=== PATIENT | female | born 1945 | race Caucasian/White ===

== ENCOUNTER 2024-01-12 16:23 | Emergency (ER) | payer BC, MEDICARE ==
[~2024-01-12] VITALS: Ht 149.9 cm; Wt 60.3 kg
[~2024-01-12 16:23] MED LIST: ATENOLOL50 MG PO; CYMBALTA20 MG PO; FERROUS SULFAT325 MG PO; FOLIC ACID0.4 MG PO; GABAPENTIN300 MG PO; HYOSCYAMINE0.375 MG PO; IRBESARTAN150 MG PO; LEVETIRACETAM500 MG PO; LEVOTHYROXINE112 MCG PO; METFORMIN HCL500 MG PO; MONTELUKAST SOD10 MG PO; MUCINEX DM ER1 EACH PO; OMEPRAZOLE40 MG PO; PEPCID AC10 MG PO; TRESIBA100 UNIT/1 SC; VIT B12 PO
[2024-01-12 16:33] VITALS: TEMP 98.3
[2024-01-12 17:15] LABS: BASOPHILS % 0.3 % (0.0-1.0); EOSINOPHILS # (AUTO) 0.1 (0.0-0.4); EOSINOPHILS % 0.8 % (0.0-6.0); HEMATOCRIT 33.7 % (34.2-44.1); HEMOGLOBIN 10.7 g/dL (12.0-16.0); LYMPHOCYTES # (AUTO) 0.6 (1.0-3.2); LYMPHOCYTES % 9.2 % (18.0-39.1); MEAN CORPUSCULAR HEMOGLOBIN 32.7 pg (28-32); MEAN CORPUSCULAR HGB CONC 31.8 g/dL (31-35); MEAN CORPUSCULAR VOLUME 103.1 fL (81-99); MONOCYTES # (AUTO) 0.4 (0.2-0.8); MONOCYTES % 5.4 % (4.4-11.3); NEUTROPHILS # (AUTO) 5.6 (2.1-6.9); NEUTROPHILS % 84.1 % (38.7-80.0); PLATELET COUNT 77 x10e3/uL (140-360); RED BLOOD COUNT 3.27 x10e6/uL (3.6-5.1); RED CELL DISTRIBUTION WIDTH 16.2 % (11.7-14.4); WHITE BLOOD COUNT 6.66 x10e3/uL (4.8-10.8)
[2024-01-12 17:26] LABS: ALBUMIN 2.9 g/dL (3.5-5.0); ALBUMIN/GLOBULIN RATIO 0.6 (0.8-2.0); ANION GAP 11.4 mmol/L (8-16); BILIRUBIN,TOTAL 1.1 mg/dL (0.2-1.2); CALCIUM 8.1 mg/dL (8.4-10.2); CREATININE, SERUM 0.84 mg/dL (0.57-1.11); TOTAL PROTEIN 7.8 g/dL (6.5-8.1)
[2024-01-12 17:27] LABS: POTASSIUM 3.4 mmol/L (3.5-5.1)
[2024-01-12 17:32] LABS: TROPONIN I 0.003 ng/mL (0-0.300)
[2024-01-12 19:52] LABS: INR 1.16; PROTHROMBIN TIME 15.5 seconds (11.9-14.5)
[2024-01-12 19:53] LABS: PARTIAL THROMBOPLASTIN TIME 33.9 seconds (23.8-35.5)
[2024-01-12] MEDS ORDERED: DEXTROSE 50% SYRINGE 50 ML IV ONE (21:05)
[2024-01-12] MEDS: DEXTROSE 50% SYRINGE 50 ML IV ONE (21:06)
[2024-01-12] MEDS ORDERED: DEXTROSE 50% SYRINGE 50 ML IV PRN (21:15)
[2024-01-12 22:00] VITALS: PULSE 81; RESP 24
[2024-01-12 22:35] VITALS: BP 166/99; O2SAT 97
== END 2024-01-12 22:30 | disposition other institution (70) ==
LOC: ER 16:34
DX: R06.00 Dyspnea, unspecified (principal); R18.8 Other ascites; K74.60 Unspecified cirrhosis of liver; K57.30 Diverticulosis of large intestine without perforation or abscess without bleeding; E11.65 Type 2 diabetes mellitus with hyperglycemia; R16.1 Splenomegaly, not elsewhere classified; I10 Essential (primary) hypertension
CPT/HCPCS: 36415; 71045; 74176; 80053; 82140; 82948; 83880; 84484; 85025; 85610; 85730; 93005; 99284; J7799

== ENCOUNTER 2024-03-25 11:14 | Emergency (ER) | payer BC, MEDICARE ==
[~2024-03-25] VITALS: Ht 149.9 cm; Wt 60.3 kg
[2024-03-25 12:53] LABS: BASOPHILS % 0.3 % (0.0-1.0); EOSINOPHILS # (AUTO) 0.1 (0.0-0.4); EOSINOPHILS % 1.2 % (0.0-6.0); HEMATOCRIT 44.6 % (34.2-44.1); HEMOGLOBIN 13.9 g/dL (12.0-16.0); LYMPHOCYTES # (AUTO) 0.8 (1.0-3.2); LYMPHOCYTES % 14.5 % (18.0-39.1); MEAN CORPUSCULAR HGB CONC 31.2 g/dL (31-35); MEAN CORPUSCULAR VOLUME 102.8 fL (81-99); MONOCYTES # (AUTO) 0.1 (0.2-0.8); MONOCYTES % 2.1 % (4.4-11.3); NEUTROPHILS # (AUTO) 4.7 (2.1-6.9); NEUTROPHILS % 81.6 % (38.7-80.0); PLATELET COUNT 78 x10e3/uL (140-360); RED BLOOD COUNT 4.34 x10e6/uL (3.6-5.1); RED CELL DISTRIBUTION WIDTH 16.4 % (11.7-14.4); WHITE BLOOD COUNT 5.74 x10e3/uL (4.8-10.8)
[2024-03-25 13:15] LABS: INR 1.02
[2024-03-25 13:16] LABS: PARTIAL THROMBOPLASTIN TIME 35.2 seconds (23.8-35.5)
[2024-03-25 13:28] LABS: ALANINE AMINOTRANSFERASE 37 IU/L (0-55); ALBUMIN 3.8 g/dL (3.5-5.0); ALBUMIN/GLOBULIN RATIO 0.6 (0.8-2.0); ALKALINE PHOSPHATASE 196 IU/L (40-150); ANION GAP 16.9 mmol/L (8-16); BILIRUBIN,TOTAL 1.8 mg/dL (0.2-1.2); BLOOD UREA NITROGEN 26 mg/dL (7-26); BUN/CREATININE RATIO 28 (6-25); CALCIUM 9.3 mg/dL (8.4-10.2); CARBON DIOXIDE 26 mmol/L (22-29); CHLORIDE 106 mmol/L (98-107); CREATINE KINASE 112 IU/L (29-168); CREATININE, SERUM 0.93 mg/dL (0.57-1.11); EST GLOMERULAR FILTRATION RATE 63 ML/MIN (>=60); SODIUM 146 mmol/L (136-145); TOTAL PROTEIN 10.1 g/dL (6.5-8.1)
[2024-03-25 13:30] LABS: POTASSIUM 2.9 mmol/L (3.5-5.1)
[2024-03-25 13:31] LABS: GLUCOSE 46 mg/dL (74-118)
[2024-03-25] MEDS ORDERED: DEXTROSE 50% SYRINGE 50 ML IV ONE (13:35)
[2024-03-25] MEDS: DEXTROSE 50% SYRINGE 50 ML IV STA (13:43)
[2024-03-25] MEDS ORDERED: ALBUMIN 25% 12.5GM 50ML 100 ML IV ONE (15:32)
[2024-03-25] MEDS ORDERED: ALBUMIN 25% 12.5GM 50ML 50 ML IV ONE (15:41)
[2024-03-25] MEDS: POTASSIUM CHLORIDE 20 MEQ TAB CR PO STA (16:24)
[2024-03-25 17:40] VITALS: PULSE 60; RESP 18; TEMP 98; O2SAT 99
[2024-03-25 17:46] LABS: TROPONIN I < 0.05 ng/mL (0.0-0.40)
== END 2024-03-25 18:15 | disposition home or self-care (01) ==
LOC: ER 11:29
DX: R18.8 Other ascites (principal); K74.60 Unspecified cirrhosis of liver; E11.649 Type 2 diabetes mellitus with hypoglycemia without coma; I10 Essential (primary) hypertension; E03.9 Hypothyroidism, unspecified; K76.9 Liver disease, unspecified; D64.9 Anemia, unspecified; E78.5 Hyperlipidemia, unspecified; K21.9 Gastro-esophageal reflux disease without esophagitis; F32.A Depression, unspecified
CPT/HCPCS: 36415; 49083; 71045; 74470; 80053; 82550; 82948; 83735; 84484; 85025; 85610; 85730; 93005; 99284; J7799